=== PATIENT | male | born 1975 | race Caucasian/White ===

== ENCOUNTER → 2016-10-13 | Outpatient (CLI) | payer BC ==
[~2016-10-13] VITALS: Ht 182.9 cm; Wt 107.0 kg
[~2016-10-13] MED LIST: ALBUTEROL2.5 MG/0.1 INH; ALLEGRA ALLERG180 MG PO; COLESTID1 GM PO; FOLIC ACID1 MG PO; LEVOTHYROXINE0.2 M1 PO; METHOTREXA25 MG/1 ML SUBQ; MUCINEX DM ER1 EACH PO; RANITIDINE HCL300 MG PO
[2016-10-13 08:37] VITALS: BP 123/77
== END ==
LOC: MRI 07:06 → OR 13:30 → EDSTATUS 15:49 → MRI 15:49
DX: M16.12 Unilateral primary osteoarthritis, left hip (principal); M51.27 Other intervertebral disc displacement, lumbosacral region
CPT/HCPCS: 50010; 62110; 62900; 70005

== ENCOUNTER 2018-08-24 06:05 | Outpatient (CLI) | payer BC ==
[~2018-08-24] VITALS: Ht 182.9 cm; Wt 108.9 kg
[2018-08-24 07:00] VITALS: BP 119/76
--- NOTE | 2018-08-24 08:39 | EKG ---
[address] [address] ELECTROCARDIOGRAM REPORT Name: KEN PEDRAZA Room #: 150-7 [facility].#: [id number] ������������������ Admission: 08/24/18 ������������������ Attend Phys: Jorje Sharma DO Discharge: ������������������ Date of : 71 Report #: [id number] ����������������������������������������������������������������� [id number] THIS REPORT FOR: //name// [facility] Test Date: 2018-08-24 Test Time: 07:26:12 Pat Name: KEN PEDRAZA Department: Room: 150 7 Gender: M Clinical Laboratory Technologist: KYLE : 1975 Requested By: Erik Garcia Order Number: [id number] MD: Kp Melvin Measurements Intervals [place] Rate: 68 P: 11 IN: 201 QRS: -30 QRSD: 110 T: 40 QT: 419 QTc: 446 Interpretive Statements Sinus rhythm Left axis deviation No previous ECG available for comparison Electronically Signed On 08-24-2018 8:38:52 [employer] by Kp Melvin [email or web address] ��������������������������������������������� <ELECTRONICALLY SIGNED> ���������������������������������������� By: Kp Melvin MD, [facility] ��������������������������������������������� 08/24/18 0838 0726 5 Kp Melvin MD, FACC /EPI
== END 2018-08-24 10:20 | disposition home or self-care (01) ==
LOC: TBA 06:05 → MRI 06:05
DX: M51.16 Intervertebral disc disorders with radiculopathy, lumbar region (principal); M51.27 Other intervertebral disc displacement, lumbosacral region; M51.37 Other intervertebral disc degeneration, lumbosacral region; M48.061 Spinal stenosis, lumbar region without neurogenic claudication; V89.2XXA Person injured in unspecified motor-vehicle accident, traffic, initial encounter
CPT/HCPCS: 62110; 62900; 70005